=== PATIENT | female | born 1990 | race Caucasian/White ===

== ENCOUNTER 2016-11-28 11:01 | Emergency (ER) | payer MEDICAID ==
[~2016-11-28 11:01] MED LIST: DICL50 PO; ROBA750T3 PO
--- NOTE | 2016-11-28 12:42 | PD ---
HPI Chief Complaint NST only, decreased movement Date Seen: Nov 28, 2016 Travel History International Travel<30 Days: No Contact w/Intl Traveler<30Days: No Known Affected Area: No Allergies-Medications (Allergen,Severity, Reaction): Coded Allergies: No Known Allergies (Verified , 10/12/15) Home Meds Active Scripts Methocarbamol (Robaxin-750)750 Mg Tab1,500 Mg PO TID #50 TAB Prov:Blanca Valerio MD 10/12/15 Diclofenac Sod (Voltaren)50 Mg Tabec50 Mg PO TID #21 TAB Prov:Blanca Valerio MD 10/12/15 Physical Exam Narrative FHT's: Category: [1] Baseline: 120 Reactive: yes Variability: mod Decels: none Data Data Vital Signs Reviewed: Yes MDM Diagnosis Diagnosis: Primary Impression: Decreased movement affecting management of in third trimester Additional Impression: 35 weeks gestation of Disposition: 01 DISCHARGE HOME Condition: Stable Patient Instructions: Movement (ED) Maria E Kumar MD Nov 28, 2016 12:42
== END 2016-11-28 13:00 | disposition home or self-care (01) ==
LOC: HOBED 11:01
DX: O36.8130 Decreased fetal movements, third trimester, not applicable or unspecified (principal); Z3A.35 35 weeks gestation of pregnancy
CPT/HCPCS: 99281

== ENCOUNTER 2016-12-11 10:50 | Emergency (ER) | payer MEDICAID ==
[2016-12-11 11:46] VITALS: BP 122/68; PULSE 97; RESP 20; TEMP 98.4
[2016-12-11 12:04] LABS: AUTOMATED NEUTROPHIL # 11.8 TH/MM3 (1.8-7.7); BASOPHIL % 0.1 % (0.0-2.0); EOSINOPHIL # 0.1 TH/MM3 (0-0.4); EOSINOPHIL % 0.6 % (0.0-4.0); HEMATOCRIT 41.7 % (35.0-46.0); LYMPH % 15.4 % (9.0-44.0); LYMPHOCYTE # 2.4 TH/MM3 (1.0-4.8); MEAN CELL VOLUME 93.4 FL (80.0-100.0); MEAN CORPUSCULAR HEMOGLOBIN 32.3 PG (27.0-34.0); MEAN CORPUSCULAR HGB CONC 34.6 % (32.0-36.0); MONO % 7.7 % (0.0-8.0); NEUT % 76.2 % (16.0-70.0); PLATELET COUNT 216 TH/MM3 (150-450); RED BLOOD COUNT 4.46 MIL/MM3 (4.00-5.30); RED CELL DISTRIBUTION WIDTH 13.2 % (11.6-17.2); WHITE BLOOD COUNT 15.5 TH/MM3 (4.0-11.0)
[2016-12-11 12:07] LABS: HEMO FLAGS AUTO DIFF
[2016-12-11 12:16] LABS: BLOOD, URINE NEG (NEG); COMMENT (UR) CULT NOT INDICATED; CULTURE IF INDICATED CULT NOT INDICATED; GLUCOSE,URINE NEG (NEG); KETONE, URINE NEG (NEG); MUCUS URINE FEW /lpf (OCC); NITRITE,URINE NEG (NEG); SQUAMOUS EPITHELIAL CELL URINE 2 /hpf (0-5); URINE COLOR YELLOW (YELLW/STRAW)
[2016-12-11 12:20] LABS: ALT (GPT) 18 U/L (10-53); ANION GAP 11 MEQ/L (5-15); AST (GOT) 17 U/L (15-37); BICARBONATE 20.9 MEQ/L (21.0-32.0); BLOOD UREA NITROGEN 9 MG/DL (7-18); CHLORIDE 106 MEQ/L (98-107); GLOMERULAR FILTRATION RATE 132 ML/MIN (>89); SODIUM (NA) 138 MEQ/L (136-145)
[2016-12-11 12:22] LABS: ALKALINE PHOSPHATASE 83 U/L (45-117); TOTAL BILIRUBIN ADULT 0.2 MG/DL (0.2-1.0)
--- NOTE | 2016-12-11 12:28 | PD ---
HPI Chief Complaint Elevated BP in the office Date Seen: Dec 11, 2016 Time Seen: 12:00 Travel History International Travel<30 Days: No Contact w/Intl Traveler<30Days: No Known Affected Area: No History of Present Illness HPI 26y/o , IUP at 37.5 records reviewed, PNC complicated by obesity, URI/sinus/ear infection during Patient presents from the office with elevated BP at her visit today. She reports BP 140/90, per the records initial BP was 160/90. The patient denies any visual changed, RUQ or epigastric pain, and any SANDERSON at this time. Per the office notes, she reported spots if she gets up too fast, but is denying anything at this time. The records indicated a 7# weight gain between her 35w- 36w visit and 9# weight gain between her last visit. 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 She reports she is feeling well today. She reports good FM. She denies any LOF or VB. She reports some occasional cramping. She has no other complaints at this time. Para: 0 : 1 Miscarriage: 0 : 0 History Past Medical History Narrative Medical Obesity Obstetric History Obstetric History Denies abnl PAPs or STDs Past Surgical History Narrative Surgical Denies Family History Narrative Family History DM Social History Alcohol Use: No Tobacco Use: No Substance Abuse: No Allergies-Medications (Allergen,Severity, Reaction): Coded Allergies: No Known Allergies (Verified , 10/12/15) Home Meds Active Scripts Methocarbamol (Robaxin-750)750 Mg Tab1,500 Mg PO TID #50 TAB Prov:Blanca Valerio MD 10/12/15 Diclofenac Sod (Voltaren)50 Mg Tabec50 Mg PO TID #21 TAB Prov:Blanca Valerio MD 10/12/15 Review of Systems Except as stated in HPI: all other systems reviewed are Neg (Complete ROS negative except as noted in HPI) Physical Exam Vital Signs Date Time Temp Pulse Resp B/P Pulse Ox O2 Delivery O2 Flow Rate FiO2 12/11/16 11:46 98.4 97 20 122/68 Narrative GENERAL: Well-nourished, well-developed patient. SKIN: Warm and dry. HEAD: Normocephalic and atraumatic. EYES: No scleral icterus. No injection or drainage. ENT: No nasal drainage noted. Mucous membranes pink. Airway patent. NECK: Supple, trachea midline. No JVD. CARDIOVASCULAR: Regular rate and rhythm without murmurs, gallops, or rubs. RESPIRATORY: Breath sounds equal bilaterally. No accessory muscle use. BREASTS: deferred ABDOMEN/GI: Abdomen soft, non-tender, bowel sounds present, no rebound, no guarding Gravid GENITOURINARY: External Genitalia: intact and normal in appearance BUS glands: normal Cervix: no cervical/vaginal masses Dilatation: closed Effacement: thick Station: high Presentation: [-] Membranes: [intact] Uterine Contractions: [irregular] FHT's: Category: [1] Baseline: [130s] Reactive: [reactive] Variability: [moderate] Decels: [none] EXTREMITIES: No cyanosis or edema. BACK: Nontender without obvious deformity. No CVA tenderness. NEUROLOGICAL: Awake and alert. Motor and sensory grossly within normal limits. Five out of 5 muscle strength in all muscle groups. Normal speech. PSYCH: grossly normal memory/affect, rest grossly normal Data Data Vital Signs Reviewed: Yes Orders Complete Blood Count With Diff (12/11/16 11:49) Comprehensive Metabolic Panel (12/11/16 11:49) Urinalysis - C+S If Indicated (12/11/16 11:49) Protein Creat Ratio, Random Ur (12/11/16 11:57) Uric Acid, Random Urine (12/11/16 11:58) Labs Laboratory Tests Test 12/11/16 11:15 White Blood Count 15.5 Red Blood Count 4.46 Hemoglobin 14.4 Hematocrit 41.7 Mean Corpuscular Volume 93.4 Mean Corpuscular Hemoglobin 32.3 Mean Corpuscular Hemoglobin 34.6 Concent Red Cell Distribution Width 13.2 Platelet Count 216 Mean Platelet Volume 10.8 Neutrophils (%) (Auto) 76.2 Lymphocytes (%) (Auto) 15.4 Monocytes (%) (Auto) 7.7 Eosinophils (%) (Auto) 0.6 Basophils (%) (Auto) 0.1 Neutrophils # (Auto) 11.8 Lymphocytes # (Auto) 2.4 Monocytes # (Auto) 1.2 Eosinophils # (Auto) 0.1 Basophils # (Auto) 0.0 CBC Comment AUTO DIFF MDM Plan A/P: 26y/o 1. IUP at 37.5 2. Preeclampsia evaluation: patient with elevated BP in the office and significant weight gain in the past 2w, normal BP on evaluation here and asymptomatic. Laboratory evaluation with CBC, CMP, uric acid, UA, and protein/ Creatine ratio without evidence of abnormality., normal PC ration and negative proteinuria, normal platelets, normal AST/ALT; uric acid still pending, will follow up. No evidence of preeclampsia, reiterated to patient signs and symptoms , will d/c home on modified bedrest and strict preeclampsia precautions. Reviewed with Dr. Cheema who is in agreement with evaluation and plan. 3. wellbeing: reassuring testing with FHR reassuring and appropriate for gestational age, Reactive NST. FKC daily. 4. Obesity 5. URI x2 with sinus/ear infection during , no issues reported today 6. F/U with Dr. Colón in 2-3d or sooner if needed Diagnosis Diagnosis: Primary Impression: 37 weeks gestation of Additional Impression: Elevated blood pressure affecting , antepartum Disposition: 01 DISCHARGE HOME Patient Instructions: General Instructions, Movement (ED), Preeclampsia (ED) Additional Instructions: Modified bedrest, strict preeclampsia precatuions. Departure Forms: Tests/Procedures Kayleigh Colvin MD Dec 11, 2016 12:28
[2016-12-11 12:34] LABS: BANDS 5 % (0-6); METAMYELOCYTES 3 % (0-1); NEUTROPHIL # MANUAL DIFF 13.5 TH/MM3 (1.8-7.7); POLYS (SEG NEUTROPHILS) 79 % (16-70); WBC DIFF SAMPLE 100
[2016-12-11 12:35] LABS: PLATELET ESTIMATE SMEAR NORMAL (NORMAL); PLATELET MORPHOLOGY NORMAL (NORMAL); SCAN/DIFF FINAL DIFF MANUAL
--- NOTE | 2016-12-11 12:37 | HHI.PR ---
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
== END 2016-12-11 13:30 | disposition home or self-care (01) ==
LOC: HOBED 10:50
DX: O16.3 Unspecified maternal hypertension, third trimester (principal); O99.213 Obesity complicating pregnancy, third trimester; Z79.899 Other long term (current) drug therapy; Z3A.37 37 weeks gestation of pregnancy
CPT/HCPCS: 36415; 59025; 80053; 81001; 82570; 84156; 84550; 85007; 85027

== ENCOUNTER 2016-12-25 13:46 | Inpatient (IN) | payer MEDICAID ==
[~2016-12-25] VITALS: Ht 175.3 cm; Wt 138.8 kg
[2016-12-25] VITALS (109 sets, daily range): BP systolic 118–161; BP diastolic 70–94; PULSE 71–105; RESP 17–18; TEMP 97.5
[2016-12-25] MEDS ORDERED: LACTATED RINGER'S 1000 ML INJ 1,000 ML IV PRN (14:56)
[2016-12-25] MEDS ORDERED: LACTATED RINGER'S 1000 ML INJ 1,000 ML IV SCH (14:56)
--- NOTE | 2016-12-25 14:56 | PD ---
HPI Chief Complaint rupture of membranes at 0730 Date Seen: Dec 25, 2016 Time Seen: 14:44 Travel History International Travel<30 Days: No Contact w/Intl Traveler<30Days: No Known Affected Area: No History of Present Illness HPI 26-year-old who is at 39 weeks and 5 days complains of rupture membranes with clear fluid per vagina at 07 30 this morning accompanied by contractions that started at 10 AM. Patient states she's had an uncomplicated except for occasional high blood pressures the last 2 weeks, PIH workup 1 week ago was normal. Patient has no other complaints and states the contractions are moderate and occurring every 5-8 minutes. Para: 0 : 1 History Past Medical History Medical History: Denies Significant Hx Past Surgical History Surgical History: No Previous Surgery Family History Family History: Negative Social History Alcohol Use: No Tobacco Use: No Substance Abuse: No Allergies-Medications (Allergen,Severity, Reaction): Coded Allergies: No Known Allergies (Verified , 10/12/15) Home Meds Active Scripts Methocarbamol (Robaxin-750)750 Mg Tab1,500 Mg PO TID #50 TAB Prov:Blanca Valerio MD 10/12/15 Diclofenac Sod (Voltaren)50 Mg Tabec50 Mg PO TID #21 TAB Prov:Blanca Valerio MD 10/12/15 Review of Systems Except as stated in HPI: all other systems reviewed are Neg Physical Exam Narrative GENERAL: Well-nourished, well-developed patient. SKIN: Warm and dry. HEAD: Normocephalic and atraumatic. EYES: No scleral icterus. No injection or drainage. ENT: No nasal drainage noted. Mucous membranes pink. Airway patent. NECK: Supple, trachea midline. No JVD. CARDIOVASCULAR: Regular rate and rhythm without murmurs, gallops, or rubs. RESPIRATORY: Breath sounds equal bilaterally. No accessory muscle use. ABDOMEN/GI: Abdomen soft, non-tender, bowel sounds present, no rebound, no guarding Gravid to [40-] weeks size Fundal Height: [-] GENITOURINARY: External Genitalia: intact and normal in appearance BUS glands: [Normal-] Cervix: [Posterior-] Dilatation: [1-2] Effacement: [-90] Station: [-2-] Presentation: [-Vertex] Membranes: [ruptured with clear fluid] Uterine Contractions: [-Every 5 day] FHT's: Category: [-1] Baseline: [-145] Reactive: [-Moderate] Variability: [-Moderate] Decels: [Absent-] EXTREMITIES: No cyanosis or edema. BACK: Nontender without obvious deformity. No CVA tenderness. NEUROLOGICAL: Awake and alert. Motor and sensory grossly within normal limits. Five out of 5 muscle strength in all muscle groups. Normal speech. Data Data Vital Signs Reviewed: Yes [facility] Medical Record Reviewed: Yes Plan 26yo at [id number] with spontaneous rupture of membranes Early labor with irregular contractions GBS negative Borderline BP, will order PIH labs and admit for labor Diagnosis Diagnosis: Primary Impression: 39 weeks gestation of Additional Impressions: Rupture of amniotic sac less than 24 hours prior to the onset of labor Elevated blood pressure affecting in third trimester, antepartum Gala Moon MD Dec 25, 2016 14:56
[2016-12-25] MEDS ORDERED: OXYTOCIN 30 UNITS-500ML PREMIX 500 ML IV ONE (15:00)
[2016-12-25] MEDS ORDERED: ONDANSETRON HCL 4 MG/2 ML VIAL IV PRN (15:00)
[2016-12-25] MEDS ORDERED: LIDOCAINE HCL 1% 50 ML VIAL INFIL PRN (15:00)
[2016-12-25] MEDS ORDERED: MINERAL OIL 10 ML VIAL TOPICAL PRN (15:00)
[2016-12-25] MEDS ORDERED: CITRIC ACID-SODIUM CITRATE LIQ 30 ML UDC PO SCH (15:00)
[2016-12-25] MEDS ORDERED: LIDOCAINE HCL 1% 50 ML VIAL I-DERMAL PRN (15:00)
[2016-12-25] MEDS ORDERED: SODIUM CHLORID 0.9% 500 ML INJ 500 ML IV PRN (15:00)
[2016-12-25] MEDS ORDERED: SODIUM CHLOR 0.9% 1000 ML INJ 1,000 ML IV PRN (15:16)
[2016-12-25 15:33] LABS: AUTOMATED NEUTROPHIL # 13.2 TH/MM3 (1.8-7.7); BASOPHIL % 0.1 % (0.0-2.0); EOSINOPHIL # 0.1 TH/MM3 (0-0.4); EOSINOPHIL % 0.4 % (0.0-4.0); HEMATOCRIT 41.6 % (35.0-46.0); HEMO FLAGS DIFF FINAL; LYMPH % 12.9 % (9.0-44.0); LYMPHOCYTE # 2.1 TH/MM3 (1.0-4.8); MEAN CELL VOLUME 94.2 FL (80.0-100.0); MEAN CORPUSCULAR HEMOGLOBIN 32.3 PG (27.0-34.0); MEAN CORPUSCULAR HGB CONC 34.2 % (32.0-36.0); MONO % 6.7 % (0.0-8.0); NEUT % 79.9 % (16.0-70.0); PLATELET COUNT 212 TH/MM3 (150-450); RED BLOOD COUNT 4.42 MIL/MM3 (4.00-5.30); RED CELL DISTRIBUTION WIDTH 12.8 % (11.6-17.2); WHITE BLOOD COUNT 16.6 TH/MM3 (4.0-11.0)
[2016-12-25 15:54] LABS: ANION GAP 11 MEQ/L (5-15); AST (GOT) 18 U/L (15-37); BICARBONATE 23.2 MEQ/L (21.0-32.0); BLOOD UREA NITROGEN 11 MG/DL (7-18); CHLORIDE 105 MEQ/L (98-107); GLOMERULAR FILTRATION RATE 122 ML/MIN (>89); POTASSIUM 3.8 MEQ/L (3.5-5.1); SODIUM (NA) 139 MEQ/L (136-145)
[2016-12-25 15:58] LABS: ALKALINE PHOSPHATASE 82 U/L (45-117); ALT (GPT) 16 U/L (10-53); TOTAL BILIRUBIN ADULT 0.2 MG/DL (0.2-1.0); URIC ACID 4.6 MG/DL (2.6-6.0)
[2016-12-25] MEDS ORDERED: PREN29TA PO (16:42)
[2016-12-25] MEDS ORDERED: ZOLPIDEM TARTRATE 5 MG TAB PO PRN (18:45)
[2016-12-25] MEDS ORDERED: OXYTOCIN 30 UNITS/NS 500ML PREMIX IV SCH (19:00)
[2016-12-25 22:26] LABS: BACTERIA, URINE RARE /hpf; BLOOD, URINE TRACE (NEG); COMMENT (UR) CULT NOT INDICATED; CULTURE IF INDICATED CULT NOT INDICATED; GLUCOSE,URINE NEG (NEG); KETONE, URINE NEG (NEG); MUCUS URINE FEW /lpf (OCC); NITRITE,URINE NEG (NEG); SQUAMOUS EPITHELIAL CELL URINE 2 /hpf (0-5); URINE COLOR YELLOW (YELLW/STRAW)
[2016-12-25] MEDS ORDERED: fentaNYL 2MCG-BUPIV 0.125% INJ 100 ML ONE (23:34)
[2016-12-26] VITALS (141 sets, daily range): BP systolic 87–162; BP diastolic 28–94; PULSE 18–135; RESP 16–23; TEMP 97.9–101.3; O2SAT 98–100
[2016-12-26] MEDS ORDERED: LIDOCAINE HCL 1.5% PF SOLN 20 ML AMP ONE (00:23)
[2016-12-26] MEDS ORDERED: BUPIVACAINE HCL PF 0.25% 10 ML VIAL ONE (00:23)
[2016-12-26] MEDS ORDERED: ePHEDrine/NS 25 MG/5 ML SYR ONE (00:57)
[2016-12-26] MEDS ORDERED: NO SYSTEM NARCOTICS PRN (01:15)
[2016-12-26] MEDS ORDERED: fentaNYL 2MCG-BUPIV 0.125% 100 ML EPIDURAL SCH (01:15)
[2016-12-26] MEDS ORDERED: ePHEDrine/NS 25 MG/5 ML SYR IV PRN (01:15)
[2016-12-26] MEDS ORDERED: DO NOT ADMINISTER ANTICOAGULANTS PRN (01:15)
--- NOTE | 2016-12-26 07:15 | PD.OB.DELI ---
Delivery Date: Dec 26, 2016 Anesthesia: Epidural Episiotomy: None Vaginal Delivery: Normal Presentation: Occiput anterior Nuchal Cord: None Delayed cord clamping (45 sec): Yes Infant: Female One Minute : 8 Five Minute : 9 Weight: 3600 grams Placenta: Spontaneous delivery, Intact, 3 vessel cord Laceration: Vaginal laceration, 2 deg Repair: Vicryl running Additional Information nice delivery of Diana. Second degree vaginal laceration. 3-0 vicryl First degree right labial laceration repaired with 5-0 vicryl Jose Colón MD Dec 26, 2016 07:15
[2016-12-26] MEDS ORDERED: CARBOPROST TROMETHAMINE 250 MCG/ML VIAL ONE (07:23)
[2016-12-26] MEDS ORDERED: SODIUM CHLORIDE 0.9% FLUSH 10 ML FLUSH IV FLUSH PRN (07:30)
[2016-12-26] MEDS ORDERED: ALUMINUM/MAGNESIUM/SIMETH 30 ML CUP PO PRN (07:30)
[2016-12-26] MEDS ORDERED: BENZOCAINE 20% TOPICAL SPRAY 60 ML CAN TOPICAL PRN (07:30)
[2016-12-26] MEDS ORDERED: OXYTOCIN 30 UNITS-500ML PREMIX 500 ML IV SCH (07:30)
[2016-12-26] MEDS ORDERED: oxyCODONE/ACETAMINOPHEN 5 MG/325 MG TAB PO PRN (07:30)
[2016-12-26] MEDS ORDERED: ONDANSETRON ODT 4 MG TAB PO PRN (07:30)
[2016-12-26] MEDS ORDERED: ZOLPIDEM TARTRATE 5 MG TAB PO PRN (07:30)
[2016-12-26] MEDS ORDERED: OXYTOCIN 30 UNITS-500ML PREMIX 500 ML IV ONE ×2 (07:30→08:00)
[2016-12-26] MEDS ORDERED: CARBOPROST TROMETHAMINE 250 MCG/ML VIAL IM ONE (08:00)
--- NOTE | 2016-12-26 08:38 | HHI.PR ---
PREPPER Note Note Called to evaluate patient due to vaginal bleeding. Patient is and continues to have a small trickle of bleeding per vagina. Dr Colón noted a moderate PPH treated with bimanual massage and hemabate. Patient has no complaints at this time Exam: Uterus is at umbilicus and approx 200cc clot is obtained with bimanual massage and subsequent prompt uterine contraction with hemostasis' Vagina: Repaired midline noted, open superficial laceration at perineum with extension approx 2cm involving skin only, no underlying tissue with hemostasis. Very small laceration at introitus just at hymenal ring with slow trickle made hemostatic with pressure only. Total EBL 200cc, Vital signs stable, no tachycardia and excellent urine output with 300cc obtained with catheter. Gala Moon MD Dec 26, 2016 08:38
[2016-12-26] MEDS ORDERED: SODIUM CHLORIDE 0.9% FLUSH 10 ML FLUSH IV FLUSH SCH (09:00)
[2016-12-26] MEDS ORDERED: MISOPROSTOL 200 MCG TAB ONE (09:56)
[2016-12-26] MEDS ORDERED: MISOPROSTOL 100 MCG TAB ONE (10:09)
[2016-12-26] MEDS ORDERED: MISOPROSTOL 200 MCG TAB RECTAL ONE (10:15)
--- NOTE | 2016-12-26 12:40 | MP ---
cc: Jose COLÓN MD DATE OF SURGERY: 12/26/2016 PREOPERATIVE DIAGNOSIS bleeding, uncertain etiology. POSTOPERATIVE DIAGNOSIS Deep right vaginal tear that was bleeding. PROCEDURE Repair of vaginal laceration. ANESTHESIA General endotracheal intubation. SURGEON Jose Colón MD FINDINGS On examination under anesthesia the vagina had a deep right tear almost to the apex of the vagina. There was a small hematoma 3 cm x 3 cm close to this tear and was stable. The previous repair of the posterior vaginal and the labial tear were intact and not bleeding. COMPLICATIONS None. COUNTS The counts were correct. ESTIMATED BLOOD LOSS 20 ccs. FLUIDS Crystalloids. CONDITION The patient tolerated the procedure well and went to the recovery room in good condition. INDICATIONS FOR PROCEDURE This is a patient who came in and had a nice progression to complete, had a vaginal without any significant complications. She did have a posterior vaginal tear and a right labial tear. Inspection after the revealed no other obstetrical tears. She continued to have bleeding, first I thought it was due to uterine atony. She was in labor a long time and on Pitocin for a long time. When I went up and cleared out her lower uterine segment, there were several clots. This happened several times, so I though the bleeding was from uterine atony. She continued to dribble blood and that is when we decided to take her to the operating room for examination under anesthesia and see where the bleeding was coming from. PROCEDURE IN DETAIL The patient was taken to the operating room, identified by name band and verbally, given a general anesthetic and intubated. A time-out was taken and she was placed in dorsolithotomy position by myself and prepped in the usual manner on the outside, we did not prep the inside. Examination under anesthesia with a large Graves speculum revealed deep almost to the apex and deep in terms of how deep it went into the tissue tear that was bleeding, oozing and with my accounts payable assistant helping we were able to locate the tear and we began to repair with a 3-0 Vicryl in a running fashion, a locking suture. Once this had been completed the area was completely dry. She did have a little hematoma on the right side which was stable, approximately 3 cm x 4 cm. Instruments were removed. She tolerated the procedure well. R. MD MARY Pond/TLL /11:47 AM /12:13 PM
[2016-12-26] MEDS: OXYTOCIN 30 UNITS-500ML PREMIX 500 ML IV SCH ×2 (13:00→22:01)
[2016-12-26] MEDS ORDERED: MEASLES, MUMPS, RUBELLA VACCINE 0.5 ML VIAL SQ ONE (16:00)
[2016-12-26] MEDS ORDERED: DIPHTH/TETANUS/ACEL PERTUSSIS (BOOSTER) 0.5 ML VIAL/PFS IM ONE (16:00)
[2016-12-26 17:26] LABS: RAPID PLASMA REAGIN SCREEN NON-REACTIVE (NON-REACTVE)
[2016-12-26] MEDS ORDERED: ceFAZolin 1,000 MG/NS 100 ML IV ONE ×2 (23:00)
[2016-12-26] MEDS: WITCH HAZEL 50%/GLYCERIN 12.5% 40 PAD JAR TOPICAL PRN (23:04)
[2016-12-26] MEDS: oxyCODONE/ACETAMINOPHEN 5 MG/325 MG TAB PO PRN (23:04)
[2016-12-27 05:07] VITALS: TEMP 100.9
[2016-12-27] MEDS: DOCUSATE SODIUM 50 MG/SENNA 8.6 MG TAB PO PRN (05:14)
[2016-12-27] MEDS: oxyCODONE/ACETAMINOPHEN 5 MG/325 MG TAB PO PRN (05:14)
[2016-12-27 06:28] LABS: AUTOMATED NEUTROPHIL # 10.2 TH/MM3 (1.8-7.7); BASOPHIL % 0.2 % (0.0-2.0); EOSINOPHIL % 0.1 % (0.0-4.0); HEMATOCRIT 30.2 % (35.0-46.0); HEMO FLAGS DIFF FINAL; LYMPHOCYTE # 1.5 TH/MM3 (1.0-4.8); MEAN CELL VOLUME 93.7 FL (80.0-100.0); MEAN CORPUSCULAR HEMOGLOBIN 33.5 PG (27.0-34.0); MEAN CORPUSCULAR HGB CONC 35.7 % (32.0-36.0); NEUT % 79.7 % (16.0-70.0); PLATELET COUNT 127 TH/MM3 (150-450); RED BLOOD COUNT 3.23 MIL/MM3 (4.00-5.30); WHITE BLOOD COUNT 12.9 TH/MM3 (4.0-11.0)
[2016-12-27 08:46] VITALS: BP 126/75; PULSE 101; RESP 20; TEMP 98.5
--- NOTE | 2016-12-27 08:58 | HHI.OB ---
Subjective Post Operative Day: 1 Objective Vitals/I&O Vital Signs Date Time Temp Pulse Resp B/P Pulse Ox O2 Delivery O2 Flow Rate FiO2 12/27/16 08:46 98.5 101 20 126/75 12/27/16 05:07 100.9 12/26/16 23:15 99.0 12/26/16 22:25 101.3 12/26/16 20:44 101 125/74 12/26/16 20:42 99.1 18 12/26/16 18:11 97.9 12/26/16 17:00 98 12/26/16 16:09 98.1 92 18 123/68 12/26/16 13:00 98.3 88 18 129/68 12/26/16 13:00 98 12/26/16 12:30 93 17 129/61 99 12/26/16 12:30 98 12/26/16 12:29 93 17 128/60 12/26/16 12:15 96 134/70 12/26/16 12:15 100 12/26/16 12:11 96 12/26/16 12:11 132/66 12/26/16 12:01 126/66 12/26/16 12:00 98.3 98 12/26/16 12:00 23 12/26/16 10:46 91 132/73 12/26/16 10:31 91 127/69 12/26/16 10:17 98 129/73 12/26/16 10:16 84 12/26/16 10:06 99.3 18 18 12/26/16 10:01 97 131/64 12/26/16 09:16 102 141/66 12/26/16 09:01 96 148/68 Result Diagram: 12/27/16 0610 12/25/16 1430 Objective Remarks GENERAL: Well-nourished, well-developed patient. CARDIOVASCULAR: Regular rate and rhythm without murmurs, gallops, or rubs. RESPIRATORY: Breath sounds equal bilaterally. No accessory muscle use. ABDOMEN/GI: Abdomen soft, non-tender, bowel sounds present. Incision: Clean, dry and intact. Fundus: Firm, non-tender at umbilicus. GENITOURINARY: Light to moderate bleeding. EXTREMITIES: No cyanosis or edema, non-tender, without signs of DVT. Medications and IVs Current Medications Medications (Trade) Dose Ordered Sig/Karen Route Start Time Stop Time Status Last Admin (NS Flush) 2 ml BID IV FLUSH 12/26/16 09:00 (NS Flush) 2 ml UNSCH PRN IV FLUSH 12/26/16 07:30 (Tylenol) 650 mg Q4H PRN PO 12/26/16 07:30 (Motrin) 600 mg Q6H PRN PO 12/26/16 07:30 (Percocet 5-325 Mg) 1 tab Q4H PRN PO 12/26/16 07:30 12/27/16 05:14 (Percocet 5-325 Mg) 2 tab Q4H PRN PO 12/26/16 07:30 (Americaine 20% Top Spr) 1 spray Q4H PRN TOPICAL 12/26/16 07:30 12/26/16 23:04 (Tucks Pads) 1 applic QID PRN TOPICAL 12/26/16 07:30 12/26/16 23:04 (Marion-Colace) 2 tab Q12H PRN PO 12/26/16 07:30 12/27/16 05:14 (Ambien) 5 mg HS PRN PO 12/26/16 07:30 (Mag-Al Plus Susp Liq) 15 ml Q8H PRN PO 12/26/16 07:30 Ondansetron HCl 4 mg 4 mg Q6H PRN PO 12/26/16 07:30 (Pitocin 30 Units-NS 500 ml Premix) 500 ml @ 50 mls/hr Q10H IV 12/26/16 09:30 12/26/16 22:01 Assessment/Plan Problem List: (1) Normal vaginal delivery Plan: routine (2) Anemia Plan: will treat pp Assessment and Plan pt doing well vss pain well controlled with oral pain mediation had fever in the night, was given cefazolin pt had deep high vaginal tear repair under general anesthesia bleeding today is like a heavy period cbc stable this am breast feeding routine Discharge Planning consider dc home tomorrow Maya Reina Dec 27, 2016 08:58
[2016-12-27] MEDS: ACETAMINOPHEN 325 MG TAB PO PRN ×2 (11:50→18:09)
[2016-12-27] MEDS: IBUPROFEN 600 MG TAB PO PRN ×2 (11:50→18:10)
[2016-12-27 20:00] VITALS: BP 123/61; PULSE 98; RESP 16; TEMP 97.8
[2016-12-27] MEDS: WITCH HAZEL 50%/GLYCERIN 12.5% 40 PAD JAR TOPICAL PRN (21:46)
[2016-12-28] MEDS: ACETAMINOPHEN 325 MG TAB PO PRN ×2 (00:43→09:26)
[2016-12-28] MEDS: IBUPROFEN 600 MG TAB PO PRN ×2 (00:43→09:26)
[2016-12-28] MEDS: DOCUSATE SODIUM 50 MG/SENNA 8.6 MG TAB PO PRN (00:44)
[2016-12-28 08:20] VITALS: BP 137/83; PULSE 95; RESP 20; TEMP 98
--- NOTE | 2016-12-28 08:33 | HHI.DCPOC ---
Discharge Care Plan Diagnosis: (1) Anemia (2) Normal vaginal delivery Your Health Problems Are: Vaginal delivery Report Symptoms to Your Doctor -Temperature above 100.5 degrees -Redness, of incision or excessive or foul smelling drainage -Unusual pain or calf pain -Increased vaginal bleeding -Painful or difficulty urinating -Feelings of extreme sadness or anxiety after 2 weeks Goals to Promote Your Health * To prevent worsening of your condition and complications * To maintain your health at the optimal level Directions to Meet Your Goals Take your medications as prescribed Follow your dietary instruction Follow activity as directed Ensure plenty of rest for recovery Drink fluids for hydration Keep your appointments as scheduled Take your immunizations and boosters as scheduled If your symptoms worsen call your PCP, if no PCP go to Urgent Care Center or Emergency Room Smoking is Dangerous to Your Health. Avoid second hand smoke Call the 24-hour crisis hotline for domestic abuse at Maya Reina Dec 28, 2016 08:33
--- NOTE | 2016-12-28 08:33 | HHI.OB ---
Subjective Post Day: 2 Objective Vitals/I&O Vital Signs Date Time Temp Pulse Resp B/P Pulse Ox O2 Delivery O2 Flow Rate FiO2 12/27/16 20:00 97.8 98 16 123/61 12/27/16 08:46 98.5 101 20 126/75 Objective Remarks GENERAL: Well-nourished, well-developed patient. CARDIOVASCULAR: Regular rate and rhythm without murmurs, gallops, or rubs. RESPIRATORY: Breath sounds equal bilaterally. No accessory muscle use. ABDOMEN/GI: Abdomen soft, non-tender. Fundus: Firm, non-tender at umbilicus. GENITOURINARY: Light to moderate bleeding. EXTREMITIES: No cyanosis or edema, non-tender, without signs of DVT. Medications and IVs Current Medications Medications (Trade) Dose Ordered Sig/Karen Route Start Time Stop Time Status Last Admin (NS Flush) 2 ml BID IV FLUSH 12/26/16 09:00 (NS Flush) 2 ml UNSCH PRN IV FLUSH 12/26/16 07:30 (Tylenol) 650 mg Q4H PRN PO 12/26/16 07:30 12/28/16 00:43 (Motrin) 600 mg Q6H PRN PO 12/26/16 07:30 12/28/16 00:43 (Percocet 5-325 Mg) 1 tab Q4H PRN PO 12/26/16 07:30 12/27/16 05:14 (Percocet 5-325 Mg) 2 tab Q4H PRN PO 12/26/16 07:30 (Americaine 20% Top Spr) 1 spray Q4H PRN TOPICAL 12/26/16 07:30 12/26/16 23:04 (Tucks Pads) 1 applic QID PRN TOPICAL 12/26/16 07:30 12/27/16 21:46 (Marion-Colace) 2 tab Q12H PRN PO 12/26/16 07:30 12/28/16 00:44 (Ambien) 5 mg HS PRN PO 12/26/16 07:30 (Mag-Al Plus Susp Liq) 15 ml Q8H PRN PO 12/26/16 07:30 Ondansetron HCl 4 mg 4 mg Q6H PRN PO 12/26/16 07:30 (Pitocin 30 Units-NS 500 ml Premix) 500 ml @ 50 mls/hr Q10H IV 12/26/16 09:30 12/26/16 22:01 Assessment/Plan Problem List: (1) Normal vaginal delivery Plan: routine (2) Anemia Plan: will treat pp Assessment and Plan pt doing well pain well controlled with oral pain mediation afebrile denies dizziness with ambulation breast feeding routine Discharge Planning dc home today Maya Reina Dec 28, 2016 08:33
[2016-12-28] MEDS ORDERED: IBUP-232 PO (08:34)
--- NOTE | 2016-12-28 08:39 | HHI.DS ---
Admission Date Dec 25, 2016 at 15:01 Discharge Date: Dec 28, 2016 Admitting Diagnosis term labor Diagnosis: Delivery Date: Dec 26, 2016 Vaginal Delivery: Normal : Female Brief History 26-year-old G1 Po srom, term with vaginal tear repair deep vaginal tear repaired under anesthesia . Hospital Course term , srom with vaginal tear repair deep vaginal tear repair under anesthesia routine Pt Condition on Discharge: Good Discharge Disposition: Discharge Home Discharge Instructions Diet Instructions: As Tolerated, No Restrictions Additional Diet Instructions: Drink at least 8 - 16 oz bottles of water a day Activities You Can Perform: Shower Only-No Bath, Sitz Bath Activities to Avoid: Lifting/Bending, Sexual Activity Additional Activity Instruc.: No driving until off pain medications Do not lift anything heavier than your baby in an infant carrier Follow up Referrals: FACILITY SUPERVISOR - 2 Weeks @ [facility] [place] New Medications: Ibuprofen (Ibuprofen) 600 Mg Tab 600 MG PO Q6H moderate pain #30 Ref 1 TAB Continued Medications: Vit-Iron Carbonyl ( Plus Iron 29-1 mg) 1 Tab Tab 1 TAB PO DAILY Nutritional Supplement #30 Ref 0 TAB Maya Reina Dec 28, 2016 08:39
== END 2016-12-28 14:02 | disposition home or self-care (01) | DRG 774 ==
LOC: HOBED 13:46 → H2EA 15:01 → H1EA 12-26 13:31
PROVIDERS: ADMIT Obstetrics & Gynecology; ATTEND Obstetrics & Gynecology
PROC: 10E0XZZ Delivery of Products of Conception, External Approach (ICD-10-PCS; principal; 2016-12-26)
PROC: 0KQM0ZZ Repair Perineum Muscle, Open Approach (ICD-10-PCS; 2016-12-26)
PROC: 0KQM0ZZ Repair Perineum Muscle, Open Approach (ICD-10-PCS; 2016-12-26)
DX: O70.1 Second degree perineal laceration during delivery (principal); O72.2 Delayed and secondary postpartum hemorrhage; Z37.0 Single live birth; O99.02 Anemia complicating childbirth; Z3A.39 39 weeks gestation of pregnancy; D64.9 Anemia, unspecified
CPT/HCPCS: 59025; 80053; 81001; 84112; 84550; 85025; 86592; 86900; 86901; 90707; 90715; J0690; J2405; J2590; J3010; J7120

== ENCOUNTER 2017-06-19 16:00 | Emergency (ER) | payer MEDICAID ==
[~2017-06-19] VITALS: Ht 175.3 cm; Wt 119.0 kg
[~2017-06-19 16:00] MED LIST changes: -DICL50 PO; +IBUP-232 PO; +PREN29TA PO; -ROBA750T3 PO
[2017-06-19 16:02] VITALS: BP 124/67; PULSE 110; RESP 16; TEMP 98.3; O2SAT 100
[2017-06-19] MEDS ORDERED: SODIUM CHLOR 0.9% 1000 ML INJ 1,000 ML IV SCH (16:24)
[2017-06-19] MEDS ORDERED: ONDANSETRON HCL 4 MG/2 ML VIAL IVP ONE (16:30)
[2017-06-19] MEDS ORDERED: SODIUM CHLORIDE 0.9% FLUSH 10 ML FLUSH IV FLUSH PRN (16:30)
--- NOTE | 2017-06-19 16:30 | PD ---
HPI Chief Complaint: Abdominal Pain Time Seen by Provider: 16:17 Travel History International Travel<30 days: No Contact w/Intl Traveler<30days: No Traveled to known affect area: No History of Present Illness HPI 27 years old female complains of abdominal pain, nausea vomiting diarrhea. Patient started having fever and nausea 3 days ago. Patient states that she started having abdominal pain and vomiting since yesterday. Patient states that she started having diarrhea today. Patient complaining of dysuria frequency since yesterday. Patient denies any headache. Patient denies any coughing congestion. Patient denies any chest pain or shortness of breath. Patient states the abdominal pain cramping pain localized to lower abdomen. Patient denies any pain radiation. Patient denies any back pain. Patient denies any recent travel. Patient denies any blood or mucus in the stool. On a scale of 1-10 the pain is a 5. PFSH Past Medical History Hx Anticoagulant Therapy: No Asthma: Yes (MAYBE) Diabetes: No ?: Unknown Social History Alcohol Use: No Tobacco Use: No Substance Use: No Allergies-Medications (Allergen,Severity, Reaction): Coded Allergies: No Known Allergies (Verified Adverse Reaction, Unknown, 06/19/17) Reported Meds & Prescriptions Reported Meds & Active Scripts Active Review of Systems General / Constitutional: No: Fever Eyes: No: Visual changes HENT: No: Headaches Cardiovascular: No: Chest Pain or Discomfort Respiratory: No: Shortness of Breath Gastrointestinal: Positive: Nausea, Vomiting, Diarrhea, Abdominal Pain Genitourinary: No: Dysuria Musculoskeletal: No: Pain Skin: No Rash Neurologic: No: Weakness Psychiatric: No: Depression Endocrine: No: Polydipsia Hematologic/Lymphatic: No: Easy Bruising Physical Exam Narrative GENERAL: Well-nourished, well-developed patient. SKIN: Focused skin assessment warm/dry. HEAD: Normocephalic. EYES: No scleral icterus. No injection or drainage. NECK: Supple, trachea midline. No JVD or lymphadenopathy. CARDIOVASCULAR: Regular rate and rhythm without murmurs, gallops, or rubs. RESPIRATORY: Breath sounds equal bilaterally. No accessory muscle use. GASTROINTESTINAL: Abdomen soft, nondistended. Patient has mild tenderness over the lower abdomen. No rebound tenderness. No mass. MUSCULOSKELETAL: No cyanosis, or edema. BACK: Nontender without obvious deformity. No CVA tenderness. Neurologic exam normal. Data Data Last Documented VS Vital Signs Date Time Temp Pulse Resp B/P (MAP) Pulse Ox O2 Delivery O2 Flow Rate FiO2 06/19/17 18:39 107 18 118/60 (79) 96 06/19/17 16:02 98.3 Orders Orders Urinalysis - C+S If Indicated (06/19/17 16:05) Ed Urine Pregnancytest Poc (06/19/17 16:05) Complete Blood Count With Diff (06/19/17 16:24) Comprehensive Metabolic Panel (06/19/17 16:24) Lipase (06/19/17 16:24) Iv Access Insert/Monitor (06/19/17 16:24) Ecg Monitoring (06/19/17 16:24) Oximetry (06/19/17 16:24) Ondansetron Inj (Zofran Inj) (06/19/17 16:30) Sodium Chlor 0.9% 1000 Ml Inj (Ns 1000 M (06/19/17 16:24) Sodium Chloride 0.9% Flush (Ns Flush) (06/19/17 16:30) Ondansetron Odt (Zofran Odt) (06/19/17 17:00) Ed Discharge Order (06/19/17 18:57) Labs Laboratory Tests Test 06/19/17 16:15 06/19/17 16:28 Urine Color YELLOW Urine Turbidity CLEAR Urine pH 5.5 Urine Specific [place] 1.027 Urine Protein TRACE mg/dL Urine Glucose (UA) NEG mg/dL Urine Ketones NEG mg/dL Urine Occult Blood NEG Urine Nitrite NEG Urine Bilirubin NEG Urine Leukocyte Esterase NEG Urine WBC 0-2 /hpf Urine Squamous Epithelial Cells 0-5 /hpf Urine Mucus FEW /lpf Microscopic Urinalysis Comment CULT NOT INDICATED White Blood Count 6.0 TH/MM3 Red Blood Count 4.84 MIL/MM3 Hemoglobin 14.1 GM/DL Hematocrit 43.3 % Mean Corpuscular Volume 89.4 FL Mean Corpuscular Hemoglobin 29.2 PG Mean Corpuscular Hemoglobin Concent 32.6 % Red Cell Distribution Width 11.9 % Platelet Count 169 TH/MM3 Mean Platelet Volume 10.4 FL Neutrophils (%) (Auto) 70.4 % Lymphocytes (%) (Auto) 17.6 % Monocytes (%) (Auto) 11.5 % Eosinophils (%) (Auto) 0.2 % Basophils (%) (Auto) 0.3 % Neutrophils # (Auto) 4.2 TH/MM3 Lymphocytes # (Auto) 1.1 TH/MM3 Monocytes # (Auto) 0.7 TH/MM3 Eosinophils # (Auto) 0.0 TH/MM3 Basophils # (Auto) 0.0 TH/MM3 CBC Comment DIFF FINAL Differential Comment Blood Urea Nitrogen 10 MG/DL Creatinine 0.73 MG/DL Random Glucose 90 MG/DL Total Protein 8.1 GM/DL Albumin 3.5 GM/DL Calcium Level 8.8 MG/DL Alkaline Phosphatase 101 U/L Aspartate Amino Transf (AST/SGOT) 82 U/L Alanine Aminotransferase (ALT/SGPT) 94 U/L Total Bilirubin 0.5 MG/DL Sodium Level 137 MEQ/L Potassium Level 3.7 MEQ/L Chloride Level 104 MEQ/L Carbon Dioxide Level 24.9 MEQ/L Anion Gap 8 MEQ/L Estimat Glomerular Filtration Rate 96 ML/MIN Lipase 126 U/L MDM Medical Decision Making Medical Screen Exam Complete: Yes Emergency Medical Condition: Yes Interpretation(s) 1857 PM. CBC within normal limit. CMP within normal limit. AST 82. ALT 94. UA is negative. Differential Diagnosis Differential diagnosis including gastroenteritis, colitis, UTI, pyelonephritis, electrolyte abnormality, dehydration. Narrative Course 27 years old female with no abdominal pain, nausea vomiting diarrhea and dysuria and frequency. Zofran 4 mg ODT. Diagnosis Primary Impression: Gastroenteritis Patient Instructions: General Instructions Additional Instructions: Clear fluids tonight advance diet tomorrow. Take medication as needed. Follow- up with personal physician. Return if persistent problem or worse. Med/Other Pt SpecificInfo: Prescription(s) given Scripts Diphenoxylate-Atropine (Lomotil) 2.5-0.025 Mg Tab 1 TAB PO Q6H Y for DIARRHEA, #10 TAB 0 Refills Prov: Herbert Banegas MD 06/19/17 Dicyclomine (Bentyl) 10 Mg Cap 10 MG PO TID for Bowel Management, #15 CAP 0 Refills Prov: Herbert Banegas MD 06/19/17 Ondansetron Odt (Zofran Odt) 4 Mg Tab 4 MG SL Q6HR Y for Nausea/Vomiting, #10 TAB 0 Refills Prov: Herbert Banegas MD 06/19/17 Disposition: 01 DISCHARGE HOME Condition: Stable Herbert Banegas MD Jun 19, 2017 16:30
[2017-06-19 16:31] VITALS: O2SAT 97
[2017-06-19 16:56] LABS: BILIRUBIN, URINE NEG (NEG); BLOOD, URINE NEG (NEG); GLUCOSE,URINE NEG (NEG); KETONE, URINE NEG (NEG); NITRITE,URINE NEG (NEG); PH, URINE 5.5 (5.0-8.5); URINE LEUKOCYTE ESTERASE NEG (NEG)
[2017-06-19 16:56] LABS: AUTOMATED NEUTROPHIL # 4.2 TH/MM3 (1.8-7.7); BASOPHIL % 0.3 % (0.0-2.0); EOSINOPHIL % 0.2 % (0.0-4.0); HEMATOCRIT 43.3 % (35.0-46.0); HEMOGLOBIN 14.1 GM/DL (11.6-15.3); LYMPH % 17.6 % (9.0-44.0); LYMPHOCYTE # 1.1 TH/MM3 (1.0-4.8); MEAN CELL VOLUME 89.4 FL (80.0-100.0); MEAN CORPUSCULAR HEMOGLOBIN 29.2 PG (27.0-34.0); MEAN CORPUSCULAR HGB CONC 32.6 % (32.0-36.0); MEAN PLATELET VOLUME 10.4 FL (7.0-11.0); MONO % 11.5 % (0.0-8.0); MONOCYTE # 0.7 TH/MM3 (0-0.9); NEUT % 70.4 % (16.0-70.0); PLATELET COUNT 169 TH/MM3 (150-450); RED BLOOD COUNT 4.84 MIL/MM3 (4.00-5.30); RED CELL DISTRIBUTION WIDTH 11.9 % (11.6-17.2)
[2017-06-19] MEDS ORDERED: ONDANSETRON ODT 4 MG TAB PO ONE (17:00)
[2017-06-19 17:02] LABS: SQUAMOUS EPITHELIAL CELL URINE 0-5 /hpf (0-5); URINE COLOR YELLOW (YELLW/STRAW); WBC, URINE 0-2 /hpf (0-5)
[2017-06-19 17:03] LABS: MUCUS URINE FEW /lpf (OCC)
[2017-06-19 17:08] LABS: CHLORIDE 104 MEQ/L (98-107); SODIUM (NA) 137 MEQ/L (136-145)
[2017-06-19 17:11] LABS: ALBUMIN 3.5 GM/DL (3.4-5.0); BICARBONATE 24.9 MEQ/L (21.0-32.0); CALCIUM 8.8 MG/DL (8.5-10.1); LIPASE 126 U/L (73-393)
[2017-06-19 17:12] LABS: BLOOD UREA NITROGEN 10 MG/DL (7-18); GLUCOSE,RANDOM 90 MG/DL (74-106)
[2017-06-19 17:14] LABS: ALT (GPT) 94 U/L (10-53); AST (GOT) 82 U/L (15-37); CREATININE 0.73 MG/DL (0.50-1.00); GLOMERULAR FILTRATION RATE 96 ML/MIN (>89)
[2017-06-19 17:16] LABS: TOTAL BILIRUBIN ADULT 0.5 MG/DL (0.2-1.0); TOTAL PROTEIN 8.1 GM/DL (6.4-8.2)
[2017-06-19 17:17] LABS: ALKALINE PHOSPHATASE 101 U/L (45-117)
[2017-06-19 18:39] VITALS: BP 118/60; PULSE 107; RESP 18; O2SAT 96
[2017-06-19] MEDS ORDERED: LOMO2.5T PO (19:00)
[2017-06-19] MEDS ORDERED: DICY10 PO (19:00)
[2017-06-19] MEDS ORDERED: ZOFR4TAB3 SL (19:00)
[2017-06-19 19:21] VITALS: BP 115/69; TEMP 99
== END 2017-06-19 19:24 | disposition home or self-care (01) ==
LOC: PHED 16:00
DX: K52.9 Noninfective gastroenteritis and colitis, unspecified (principal)
CPT/HCPCS: 80053; 81001; 83690; 84703; 85025; 99284; J7030